=== PATIENT | female | born 1985 | race Caucasian/White ===

== ENCOUNTER 2016-11-07 11:18 | Emergency (ER) | payer MEDICAID ==
[~2016-11-07] VITALS: Ht 167.6 cm; Wt 53.0 kg
[2016-11-07 11:32] VITALS: Ht 167.6 cm; Wt 53.0 kg
--- NOTE | 2016-11-07 13:12 | ERD ---
ER Documentation Chief Complaint Date/Time DATE: 11/07/16 TIME: 13:10 Chief Complaint BRIGHT RED VAG BLEED PREG, SINCE YESTERDAY, LMP 09/23/16, G1PO HPI 30 year old female comes in A0 approximately 6 weeks , with bright red vaginal bleeding that started last night. Patient states that it was a moderate amount of bleeding, no clots and today it has slowed down. She denies any pelvic pain. Patient states that she went to [facility] and had blood work done, has not had an ultrasound. She denies any fevers or chills or dizziness. ROS All systems reviewed and are negative except as per history of present illness. Allergies Allergies: Coded Allergies: No Known Allergy (Unverified , 11/07/16) PMhx/Soc Medical and Surgical Hx: pt denies Medical Hx, pt denies Surgical Hx Hx Alcohol Use: No Hx Substance Use: No Hx Tobacco Use: No Physical Exam Vitals Vital Signs Date Time Temp Pulse Resp B/P Pulse Ox O2 Delivery O2 Flow Rate FiO2 11/07/16 14:38 98.2 78 18 101/65 99 Room Air 11/07/16 11:32 98.8 70 18 98/65 99 Physical Exam General: Well-developed, well-nourished. The patient appears in no acute distress. HEENT: Head is normocephalic, atraumatic. No scleral icterus Neck: Supple. Nontender. Lungs: Clear to auscultation. Normal air movement. Heart: Regular rate and rhythm. S1 and S2 are normal. No murmurs, gallops, or rubs. Abdomen: Soft, nontender, nondistended. Bowel sounds are normoactive. Extremities: No clubbing or cyanosis. Normal pulses. Moving extremities x 4. No weakness. Neurologic: Alert and oriented 3. No focal deficits. Skin: Normal turgor. No rash or lesions. Result Diagram: 11/07/16 1300 Results 24 hrs Laboratory Tests Test 11/07/16 13:00 11/07/16 13:07 White Blood Count 9.710^3/ul Red Blood Count 4.5110^6/ul Hemoglobin 12.9g/dl Hematocrit 38.9% Mean Corpuscular Volume 86.3fl Mean Corpuscular Hemoglobin 28.6pg Mean Corpuscular Hemoglobin Concent 33.2g/dl Red Cell Distribution Width 15.7% Platelet Count 88027^3/UL Mean Platelet Volume 10.5fl Neutrophils % 78.5% Lymphocytes % 16.3% Monocytes % 3.9% Eosinophils % 0.8% Basophils % 0.3% Nucleated Red Blood Cells % 0.0/100WBC Neutrophils # (Manual) 7.610^3/ul Lymphocytes # 1.610^3/ul Monocytes # 0.410^3/ul Eosinophils # 0.110^3/ul Basophils # 0.010^3/ul Nucleated Red Blood Cells # 0.010^3/ul Beta HCG, Quantitative 308404.0mIU/ml Urine Color YELLOW Urine Clarity CLEAR Urine pH 5.[address] [place] 1.010 Urine Ketones TRACEmg/dL Urine Nitrite NEGATIVEmg/dL Urine Bilirubin NEGATIVEmg/dL Urine Urobilinogen NEGATIVEmg/dL Urine Leukocyte Esterase NEGATIVELeu/ul Urine Microscopic RBC 1/HPF Urine Microscopic WBC 2/HPF Urine Squamous Epithelial Cells FEW/HPF Urine Bacteria FEW/HPF Urine Hemoglobin 2+mg/dL Urine Glucose NEGATIVEmg/dL Urine Total Protein NEGATIVEmg/dl DIAGNOSTIC IMAGING REPORT Patient: SANJEEV CASANOVA : 1985 Age: 30 Sex: F MR #: [id number] DOS: 11/07/16 1250 Ordering MD: FARIBA DELACRUZ PA-C Location: [facility] Room/Bed: PROCEDURE: US OB. CLINICAL INDICATION: Vaginal bleeding TECHNIQUE: Transabdominal and transvaginal views of the pelvis were obtained. COMPARISON: No prior studies are available for comparison. FINDINGS: There is a single intrauterine gestation with a CRL measuring 0.3 cm and the gestational sac measuring 1.9 cm, corresponding to a gestational age of 6 weeks and 3 days. The heart tones could not be identified. There is a hypoechoic fluid collection adjacent to the gestational sac, measuring 2.1 x 1.4 cm, consistent with subchorionic hemorrhage. The right ovary measures 2.9 x 2.2 x 2.3 cm. There is a hemorrhagic corpus luteum cyst in the right ovary. The left ovary measures 1.8 x 1.3 x 1.1 cm. There is a small amount of free fluid in the posterior cul-de-sac and adjacent to the right ovary. RPTAT: AA IMPRESSION: Single intrauterine with an estimated gestational age of 6 weeks and 3 days, based on ultrasound measurements. No heart tones are noted. This may be due to early gestation versus represent demise. Moderate area of subchorionic hemorrhage. Right ovarian hemorrhagic corpus luteum cyst. Close follow-up ultrasound and HCG levels is recommended is recommended. .Beny Walters MD, MD Date Time Electronically viewed and signed by .Beny Walters MD, on 11/07/2016 14: 10 .S/ CC: FARIBA DELACRUZ PA-C Procedures/[facility] 30 year old female comes in with vaginal bleeding with a single intrauterine that measures At 6 weeks and 3 days, without evidence of heart tones. There is also evidence of subchorionic hemorrhage.Patient is type and Rh is A+, no indication for RhoGam. She has not had an ultrasound previously, she has been asked to recheck in 3-4 days for comparison. Departure Diagnosis: Primary Impression: Threatened Condition: FARIBA Jones PA-C Nov 07, 2016 13:12
[2016-11-07 13:22] LABS: BASOPHILS % 0.3 % (0.0-2.0); EOSINOPHILS # 0.1 10^3/ul (0.0-0.5); EOSINOPHILS % 0.8 % (0.0-7.0); HEMATOCRIT 38.9 % (37.0-47.0); HEMOGLOBIN 12.9 g/dl (12.0-16.0); LYMPHOCYTES # 1.6 10^3/ul (0.8-2.9); LYMPHOCYTES % 16.3 % (15.0-51.0); MEAN CORPUSCULAR HEMOGLOBIN 28.6 pg (29.0-33.0); MEAN CORPUSCULAR HGB CONC 33.2 g/dl (32.0-37.0); MEAN CORPUSCULAR VOLUME 86.3 fl (82.0-101.0); MEAN PLATELET VOLUME 10.5 fl (7.4-10.4); MONOCYTE # 0.4 10^3/ul (0.3-0.9); MONOCYTES % 3.9 % (0.0-11.0); NEUTROPHILS % 78.5 % (39.0-77.0); PLATELET COUNT 205 10^3/UL (140-415); RED BLOOD COUNT 4.51 10^6/ul (4.20-5.40); RED CELL DISTRIBUTION WIDTH 15.7 % (11.5-14.5); WHITE BLOOD COUNT 9.7 10^3/ul (4.8-10.8)
[2016-11-07 13:56] LABS: ADD UMIC YES; UR ASCORBIC ACID NEGATIVE (NEGATIVE); UR BACTERIA FEW /HPF (NONE SEEN); UR BILIRUBIN (Dip) NEGATIVE (NEGATIVE); UR BLOOD (Dip) 2+ mg/dL (NEGATIVE); UR CLARITY CLEAR (CLEAR); UR COLOR YELLOW (YELLOW); UR GLUCOSE (Dip) NEGATIVE (NEGATIVE); UR KETONES (Dip) TRACE mg/dL (NEGATIVE); UR LEUKOCYTE ESTERASE (Dip) NEGATIVE Leu/ul (NEGATIVE); UR NITRITE (Dip) NEGATIVE (NEGATIVE); UR RBC 1 /HPF (0-5); UR SQUAMOUS EPITHELIAL CELL FEW /HPF (FEW); UR TOTAL PROTEIN (Dip) NEGATIVE (NEGATIVE); UR UROBILINOGEN (Dip) NEGATIVE (NEGATIVE)
--- NOTE | 2016-11-07 14:10 | RADRPT ---
PROCEDURE: US OB. CLINICAL INDICATION: Vaginal bleeding TECHNIQUE: Transabdominal and transvaginal views of the pelvis were obtained. COMPARISON: No prior studies are available for comparison. FINDINGS: There is a single intrauterine gestation with a CRL measuring 0.3 cm and the gestational sac measuri ng 1.9 cm, corresponding to a gestational age of 6 weeks and 3 days. The heart tones could not be identified. There is a hypoechoic fluid collection adjacent to the gestational sac, measuring 2.1 x 1.4 cm, con sistent with subchorionic hemorrhage. The right ovary measures 2.9 x 2.2 x 2.3 cm. There is a hemorrhagic corpus luteum cyst in the right ovary. The left ovary measures 1.8 x 1.3 x 1.1 cm. There is a small amount of free fluid in the posterior cul-de-sac and adjacent to the right ovary. RPTAT: AA IMPRESSION: Single intrauterine with an estimated gestational age of 6 weeks and 3 days, based on ultr asound measurements. No heart tones are noted. This may be due to early gestation versus represent demise. Moderate area of subchorionic hemorrhage. Right ovarian hemorrhagic corpus luteum cyst. Close follow-up ultrasound and HCG levels is recommended is recommended. .Beny Walters MD, MD Date Time Electronically viewed and signed by .Beny Walters MD, MD on 11/07/2016 14:10 .S/
[2016-11-07 14:38] VITALS: BP 101/65; PULSE 78; RESP 18; TEMP 98.2
== END 2016-11-07 14:39 | disposition home or self-care (01) ==
LOC: FTE 11:18
DX: O20.0 Threatened abortion (principal); Z3A.01 Less than 8 weeks gestation of pregnancy
CPT/HCPCS: 36415; 76801; 76817; 81001; 84702; 85025; 86900; 86901; Z7502